=== PATIENT | female | born 1990 | race Caucasian/White ===

== ENCOUNTER 2021-05-14 16:47 | Emergency (ER) | payer OTHER ==
[2021-05-14 17:17] LABS: HEMOGLOBIN 14.4 gm/dl (12.3-15.3); RED BLOOD COUNT 4.97 M/UL (4.00-5.10); WHITE BLOOD COUNT 11.4 K/UL (4.5-11.0)
[2021-05-14 17:40] LABS: BUN/CREATININE RATIO 7 (0-10)
[2021-05-14] MEDS ORDERED: MOBIC15 MG PO (21:10)
== END 2021-05-14 21:20 | disposition home or self-care (01) ==
LOC: ER1 16:47
DX: R07.89 Other chest pain (principal)
CPT/HCPCS: 71046; 80053; 82550; 82553; 83874; 84484; 85025; 85379; 93005; 96374; 99285; J1885